=== PATIENT | male | born 1945 | race Caucasian/White ===

== ENCOUNTER 2017-08-30 08:03 | Day surgery (SDC) ==
[2017-08-30] MEDS ORDERED: LIDOCAINE 1% 20 ML MDV ID STA (08:25)
[2017-08-30 08:28] VITALS: TEMP 98.2
[2017-08-30] MEDS ORDERED: VERSED ONE (09:15)
[2017-08-30] MEDS ORDERED: DIPRIVAN 20 ML VIAL IVP ONE (09:15)
[2017-08-30 09:52] VITALS: BP 132/76
--- NOTE | 2017-08-31 10:36 | OP ---
PROCEDURE: COLONOSCOPY TO THE CECUM WITH SNARE POLYPECTOMY. ENDOSCOPIST: Gina MEJIA M.D. INDICATION: HISTORY OF POLYPS; LAST COLONOSCOPY 2013. INSTRUMENT: [employer]-190. MEDICATION: PER ANESTHESIA. [place] Bowel Prep Score 2 + 3 + 3 = 8 PROCEDURE: The patient was positioned for colonoscopy. The digital rectal exam was negative. The colonoscope was inserted through the anus and advanced to the cecum. The cecum was identified using the ileocecal valve and the appendiceal orifice as landmarks. The scope was slowly withdrawn through an adequately prepped colon. A small polyp in the ascending colon removed using snare cautery. Diverticulosis of left colon. The retroflex exam was otherwise normal. Withdrawal time 9 minutes and 19 seconds. PLAN: 1. Repeat colonoscopy in 5 years. CC: DR. CHRISTIANO SONI
== END 2017-08-30 10:15 | disposition home or self-care (01) ==
LOC: SURG 08:03
PROVIDERS: ATTEND Internal Medicine Gastroenterology
DX: Z09 Encounter for follow-up examination after completed treatment for conditions other than malignant neoplasm (principal); Z86.010 Personal history of colon polyps; D12.2 Benign neoplasm of ascending colon; K57.30 Diverticulosis of large intestine without perforation or abscess without bleeding